=== PATIENT | male | born 1965 | race Caucasian/White ===

== ENCOUNTER 2021-03-10 09:12 | Inpatient (IN) | payer MEDICAID ==
[~2021-03-10] VITALS: Ht 180.3 cm; Wt 86.3 kg
[2021-03-10] VITALS (39 sets, daily range): BP systolic 103–151; BP diastolic 54–81
[2021-03-10] MEDS ORDERED: NICARDIPINE 100 MG in SODIUM CHLORIDE 0.9% 60 ML IV PRN ×3 (09:45→11:30)
[2021-03-10 09:55] LABS: CHLORIDE 108 mEq/L (98-107)
[2021-03-10 09:57] LABS: BASOPHILS % 0.2 % (0.0-2.0); EOSINOPHILS % 0.2 % (0.0-5.0); HEMOGLOBIN. 12.4 g/dL (14.0-18.0); LYMPHOCYTES % 15.9 % (20.0-50.0); MEAN CORPUSCULAR HEMOGLOBIN 33.3 pg (28.0-32.0); MEAN CORPUSCULAR VOLUME 96.7 fL (80.0-94.0); MEAN PLATELET VOLUME 7.9 fl (7.4-10.4); MONOCYTES % 4.6 % (2.0-8.0); NEUTROPHILS % 79.1 % (40.0-76.0); PLATELET 189 x1000/uL (130-400); RED BLOOD CELL COUNT 3.73 mill/uL (4.7-6.1); RED CELL DISTRIBUTION WIDTH 13.1 % (11.6-14.6)
[2021-03-10 09:59] LABS: INR 1.1; PROTHROMBIN TIME 11.4 sec (9.6-11.0)
[2021-03-10 10:00] LABS: ETHANOL BLOOD < 10 mg/dL
[2021-03-10 10:02] LABS: LDL CHOLESTEROL 80 mg/dL (5-100)
[2021-03-10 11:15] LABS: CLARITY URINE CLEAR (CLEAR); COLOR URINE YELLOW (YELLOW); KETONES URINE NEGATIVE (NEGATIVE); LEUKOCYTE ESTERASE URINE NEGATIVE (NEGATIVE); NITRITE URINE NEGATIVE (NEGATIVE); OCCULT BLOOD URINE NEGATIVE (NEGATIVE); PROTEIN URINE NEGATIVE (NEGATIVE); SPECIFIC GRAVITY URINE 1.026 (1.005-1.030); UROBILINOGEN URINE 0.2 E.U./dL (0.2-1.0)
[2021-03-10] MEDS ORDERED: MORPHINE SULFATE 2 MG/ML CPJ (NOT FOR IM USE) IV PRN (11:30)
[2021-03-10 11:42] LABS: *AMPHETAMINES SCREEN URINE NEGATIVE (NEGATIVE); *BARBITURATES SCREEN URINE NEGATIVE (NEGATIVE); *BENZODIAZEPINES SCREEN URINE NEGATIVE (NEGATIVE); *COCAINE SCREEN URINE PRESUMTIVE POSITIVE (NEGATIVE)
[2021-03-10 11:43] LABS: CANNABINOID URINE SCREEN PRESUMTIVE POSITIVE (NEGATIVE); METHADONE URINE SCREEN NEGATIVE (NEGATIVE); OPIATES URINE SCREEN NEGATIVE (NEGATIVE); PHENCYCLIDINE URINE SCREEN NEGATIVE (NEGATIVE)
[2021-03-10] MEDS ORDERED: NALOXONE HCL 0.4MG/ML VIAL IV PRN (11:45)
[2021-03-10] MEDS ORDERED: LEVETIRACETAM 500MG PREMIX 100 ML IV SCH (12:00)
[2021-03-10] MEDS: DEXAMETHASONE 4MG/ML 1ML VIAL IV SCH ×3 (12:49→23:09)
[2021-03-10] MEDS: DEXT 5%/LACTATED RINGERS 1,000 ML IV SCH (12:50)
[2021-03-10] MEDS ORDERED: IOHEXOL-350 100 ML BOTTLE ONE (13:59)
[2021-03-10] MEDS ORDERED: PANTOPRAZOLE SODIUM 40 MG/VIAL IV SCH (15:00)
[2021-03-10] MEDS: LABETALOL 5MG/ML SYR 20 MG/4 ML SYRINGE IV PRN ×2 (15:48→20:34)
[2021-03-10] MEDS: NICARDIPINE 100 MG in SODIUM CHLORIDE 0.9% 60 ML IV PRN (17:13)
[2021-03-10] MEDS: LEVETIRACETAM 500MG PREMIX 100 ML IV SCH (23:09)
[2021-03-11] VITALS (97 sets, daily range): BP systolic 95–146; BP diastolic 49–92
[2021-03-11] MEDS: NICARDIPINE 100 MG in SODIUM CHLORIDE 0.9% 60 ML IV PRN ×2 (01:50→16:00)
[2021-03-11] MEDS: DEXT 5%/LACTATED RINGERS 1,000 ML IV SCH ×2 (05:03→22:35)
[2021-03-11] MEDS: DEXAMETHASONE 4MG/ML 1ML VIAL IV SCH ×4 (05:03→23:35)
[2021-03-11 05:41] LABS: HEMATOCRIT. 38.8 % (42.0-52.0); HEMOGLOBIN. 13.2 g/dL (14.0-18.0); MEAN CORPUSCULAR HEMOGLOBIN 33.5 pg (28.0-32.0); MEAN CORPUSCULAR VOLUME 98.5 fL (80.0-94.0); MEAN PLATELET VOLUME 8.2 fl (7.4-10.4); PLATELET 203 x1000/uL (130-400); RED BLOOD CELL COUNT 3.94 mill/uL (4.7-6.1); RED CELL DISTRIBUTION WIDTH 13.5 % (11.6-14.6)
[2021-03-11] MEDS: LABETALOL 5MG/ML SYR 20 MG/4 ML SYRINGE IV PRN ×2 (09:30→12:12)
[2021-03-11] MEDS: FAMOTIDINE 20MG/2ML VIAL IV SCH (09:30)
[2021-03-11 10:51] LABS: PLATELET ESTIMATE NORMAL
[2021-03-11] MEDS: LEVETIRACETAM 500MG PREMIX 100 ML IV SCH ×2 (12:12→22:36)
[2021-03-11] MEDS: METOPROLOL TARTRATE 25MG TABLET PO SCH ×2 (15:58→20:14)
[2021-03-11] MEDS: AMLODIPINE 10MG TABLET PO SCH (15:58)
[2021-03-11] MEDS ORDERED: INFLUENZA VACCINE 05/PF 0.5 ML SYRINGE IM ONE (18:45)
[2021-03-12] VITALS (47 sets, daily range): BP systolic 114–166; BP diastolic 54–111
[2021-03-12] MEDS: LABETALOL 5MG/ML SYR 20 MG/4 ML SYRINGE IV PRN ×2 (03:26→06:49)
[2021-03-12] MEDS: DEXAMETHASONE 4MG/ML 1ML VIAL IV SCH ×2 (06:33→16:28)
[2021-03-12] MEDS: FAMOTIDINE 20MG/2ML VIAL IV SCH (08:16)
[2021-03-12] MEDS: METOPROLOL TARTRATE 25MG TABLET PO SCH ×2 (08:16→22:10)
[2021-03-12] MEDS: AMLODIPINE 10MG TABLET PO SCH (08:16)
[2021-03-12] MEDS: LEVETIRACETAM 500MG PREMIX 100 ML IV SCH ×2 (10:28→22:12)
[2021-03-12 14:15] LABS: CHLORIDE 110 mEq/L (98-107)
[2021-03-12 18:22] LABS: HEMATOCRIT. 37.1 % (42.0-52.0); HEMOGLOBIN. 12.3 g/dL (14.0-18.0); MEAN CORPUSCULAR HEMOGLOBIN 32.9 pg (28.0-32.0); MEAN CORPUSCULAR VOLUME 99.3 fL (80.0-94.0); MEAN PLATELET VOLUME 8.7 fl (7.4-10.4); PLATELET 221 x1000/uL (130-400); RED BLOOD CELL COUNT 3.73 mill/uL (4.7-6.1); RED CELL DISTRIBUTION WIDTH 13.3 % (11.6-14.6)
[2021-03-12 18:36] LABS: PLATELET ESTIMATE NORMAL
[2021-03-12 18:39] LABS: CHLORIDE 108 mEq/L (98-107)
[2021-03-13] VITALS: BP 145/85
[2021-03-13] MEDS: LABETALOL 5MG/ML SYR 20 MG/4 ML SYRINGE IV PRN ×3 (01:41→16:16)
[2021-03-13 04:00] VITALS: BP 139/90
[2021-03-13 08:00] VITALS: BP 179/105
[2021-03-13] MEDS: METOPROLOL TARTRATE 25MG TABLET PO SCH ×2 (08:35→23:05)
[2021-03-13] MEDS: FAMOTIDINE 20MG TABLET PO SCH (08:35)
[2021-03-13] MEDS: AMLODIPINE 10MG TABLET PO SCH (08:35)
[2021-03-13] MEDS: LEVETIRACETAM 500MG PREMIX 100 ML IV SCH ×2 (10:15→23:05)
[2021-03-13 12:00] VITALS: BP 158/90
[2021-03-13] MEDS: HYDRALAZINE HCL 25MG TABLET PO SCH ×2 (13:06→23:04)
[2021-03-13 16:00] VITALS: BP 138/71
[2021-03-13 20:00] VITALS: BP 145/89
[2021-03-13] MEDS: ATORVASTATIN CALCIUM 10MG TABLET PO SCH (23:02)
[2021-03-14] VITALS: BP 129/71
[2021-03-14 04:00] VITALS: BP 151/90
[2021-03-14] MEDS: HYDRALAZINE HCL 25MG TABLET PO SCH ×3 (05:12→22:02)
[2021-03-14 08:00] VITALS: BP 160/80
[2021-03-14] MEDS: FAMOTIDINE 20MG TABLET PO SCH (09:28)
[2021-03-14] MEDS: AMLODIPINE 10MG TABLET PO SCH (09:28)
[2021-03-14] MEDS: METOPROLOL TARTRATE 25MG TABLET PO SCH ×2 (09:28→22:02)
[2021-03-14] MEDS: LABETALOL 5MG/ML SYR 20 MG/4 ML SYRINGE IV PRN (09:44)
[2021-03-14] MEDS: LEVETIRACETAM 500MG PREMIX 100 ML IV SCH (11:07)
[2021-03-14 12:00] VITALS: BP 129/81
[2021-03-14 16:00] VITALS: BP 128/86
[2021-03-14 20:00] VITALS: BP 137/90
[2021-03-14] MEDS: ATORVASTATIN CALCIUM 10MG TABLET PO SCH (21:00)
[2021-03-14] MEDS ORDERED: METO25TA6 PO (21:17)
[2021-03-14] MEDS ORDERED: ATOR10TA PO (21:17)
[2021-03-14] MEDS ORDERED: KEPP500 PO (21:17)
[2021-03-14] MEDS ORDERED: AMLO10TA80 PO (21:17)
[2021-03-14] MEDS: LEVETIRACETAM 500MG TABLET PO SCH (22:00)
[2021-03-15] VITALS: BP 171/100
[2021-03-15] MEDS: LABETALOL 5MG/ML SYR 20 MG/4 ML SYRINGE IV PRN ×2 (03:31→10:27)
[2021-03-15 04:00] VITALS: BP 157/89
[2021-03-15] MEDS: HYDRALAZINE HCL 25MG TABLET PO SCH (07:15)
[2021-03-15 08:00] VITALS: BP 183/117
[2021-03-15] MEDS: FAMOTIDINE 20MG TABLET PO SCH (08:27)
[2021-03-15] MEDS: LEVETIRACETAM 500MG TABLET PO SCH (08:27)
[2021-03-15] MEDS: METOPROLOL TARTRATE 25MG TABLET PO SCH (08:27)
[2021-03-15] MEDS: AMLODIPINE 10MG TABLET PO SCH (08:27)
[2021-03-15 10:00] VITALS: BP 178/98
[2021-03-15 11:54] VITALS: BP 168/97
== END 2021-03-15 13:57 | disposition home or self-care (01) | DRG 44 ==
LOC: ER 09:21 → MICUNO 09:56 → ENRESERV 13:19 → CANRESERV 13:19 → ENRESERV 13:51 → 8WST 03-12 12:02
PROVIDERS: ADMIT Family Medicine; ATTEND Family Medicine
DX: I61.8 Other nontraumatic intracerebral hemorrhage (principal); G93.6 Cerebral edema; N17.9 Acute kidney failure, unspecified; G81.94 Hemiplegia, unspecified affecting left nondominant side; I65.21 Occlusion and stenosis of right carotid artery; E87.6 Hypokalemia; F12.90 Cannabis use, unspecified, uncomplicated; F14.10 Cocaine abuse, uncomplicated; R73.9 Hyperglycemia, unspecified; R77.8 Other specified abnormalities of plasma proteins; R74.01 Elevation of levels of liver transaminase levels; I10 Essential (primary) hypertension; Z86.73 Personal history of transient ischemic attack (TIA), and cerebral infarction without residual deficits; E78.00 Pure hypercholesterolemia, unspecified; R33.9 Retention of urine, unspecified; I16.0 Hypertensive urgency
CPT/HCPCS: 36415; 70496; 70498; 71045; 80048; 80053; 80061; 80305; 80320; 81003; 83036; 83721; 84443; 84484; 85025; 90686; 93005; 93306; 93880; 97116; 97162; 97166; 99291; C9113; J1100; J1953; J2270; J3490; J7040; J7050; Q9967; A4315; G0480